=== PATIENT | female | born 1970 | race Caucasian/White ===

== ENCOUNTER → 2017-01-11 16:49 | Outpatient (CLI) | payer BC | END | disposition home or self-care (01) | LOC: D.MAMMO 16:15 | DX: Z12.31 Encounter for screening mammogram for malignant neoplasm of breast (principal) ==

== ENCOUNTER 2018-03-10 08:00 | Outpatient (CLI) | payer BC | END 2018-03-10 09:00 | disposition home or self-care (01) | LOC: D.MAMMO 08:00 | DX: Z12.31 Encounter for screening mammogram for malignant neoplasm of breast (principal) ==

== ENCOUNTER 2019-05-02 11:30 | Outpatient (CLI) | payer BC | END 2019-05-02 12:00 | disposition home or self-care (01) | LOC: D.MAMMO 11:30 | PROVIDERS: ATTEND Family Medicine | DX: Z12.31 Encounter for screening mammogram for malignant neoplasm of breast (principal) ==

== ENCOUNTER 2019-05-23 08:00 | Outpatient (CLI) | payer BC | END 2019-05-23 08:01 | disposition home or self-care (01) | LOC: D.MAMMO 08:00 | PROVIDERS: ATTEND Family Medicine | DX: R92.8 Other abnormal and inconclusive findings on diagnostic imaging of breast (principal) ==

== ENCOUNTER 2020-04-30 08:32 | Outpatient (CLI) | payer BC | END 2020-04-30 23:59 | disposition home or self-care (01) | LOC: D.MAMMO 08:32 | PROVIDERS: ATTEND Clinical Nurse Specialist Family Health | DX: N63.21 Unspecified lump in the left breast, upper outer quadrant (principal) ==

== ENCOUNTER 2020-12-25 10:06 | Emergency (ER) | payer BC ==
[~2020-12-25] VITALS: Ht 162.6 cm; Wt 102.3 kg
[2020-12-25 10:12] VITALS: Ht 162.6 cm; Wt 102.3 kg
[2020-12-25] MEDS ORDERED: DILTIAZEM 24HR180 M4 PO (10:13)
[2020-12-25] MEDS ORDERED: OMEPRAZOLE40 MG PO (10:13)
[2020-12-25] MEDS ORDERED: BENICAR5 MG PO (10:13)
[2020-12-25] MEDS ORDERED: WELLBUTRIN XL150 M1 PO (10:13)
[2020-12-25] MEDS ORDERED: PRAVASTATIN SOD10 MG PO (10:14)
[2020-12-25] MEDS ORDERED: AMBIEN10 MG PO (10:14)
[2020-12-25] MEDS ORDERED: ATIVAN2 MG PO (10:14)
[2020-12-25 10:59] LABS: CALC OSMOLALITY 282 mosm/kg (275-300); CALCIUM 9.3 mg/dL (8.5-10.1); CARBON DIOXIDE 29.8 mmol/L (21.0-32.0); CHLORIDE - SERUM 103 mmol/L (98-107); CREATININE - SERUM 0.8 mg/dL (0.6-1.3); POTASSIUM - SERUM 4.3 mmol/L (3.5-5.1); SODIUM 139 mmol/L (136-145); UREA NITROGEN 11 mg/dL (7-18); eGFR NON AFRICAN AMERICAN 81 mL/min (90-120)
[2020-12-25 11:00] LABS: BASOPHILS 0.2 % (0-2); EOSINOPHILS 0.8 % (0-7); GLUCOSE 206 mg/dL (74-106); HEMATOCRIT 43.7 % (36.0-48.0); IMMATURE GRANULOCYTES 0.5 % (0-5); LYMPHOCYTE ABS# 1.38 10x3/uL (1.18-3.74); LYMPHOCYTES 11.2 % (15-50); MCH 28.4 pg (26.0-34.0); MCV 88.6 fL (80.0-100.0); MEAN PLATELET VOLUME 10.5 fL (7.4-10.4); MONOCYTES 3.4 % (2-11); NEUTROPHIL ABS# 10.33 10x3/uL (1.56-6.13); NEUTROPHILS 83.9 % (40-80); PLATELET COUNT 383 10x3/uL (130-400); RBC 4.93 10x6/uL (4.00-5.40); RDW 14.4 % (11.5-14.5); WBC 12.3 10x3/uL (4.8-10.8)
[2020-12-25 11:08] LABS: ALBUMIN 3.7 g/dL (3.4-5.0); ALKALINE PHOSPHATASE 113 U/L (30-120); ALT (SGPT) 25 U/L (10-68); AMYLASE - SERUM 22 U/L (25-115); BILIRUBIN - TOTAL 0.27 mg/dL (0.2-1.3); PROTEIN - SERUM 7.5 g/dL (6.4-8.2); TROPONIN-I < 0.017 ng/mL (0.000-0.060)
[2020-12-25 11:09] LABS: LIPASE 39 U/L (73-393)
[2020-12-25 11:34] LABS: BILIRUBIN NEGATIVE (NEGATIVE); KETONE NEGATIVE (NEGATIVE); NITRITE NEGATIVE (NEGATIVE); UROBILINOGEN NORMAL mg/dL (< 2)
[2020-12-25] MEDS ORDERED: ZOFRAN ODT4 MG/UDTAB PO (12:25)
[2020-12-25] MEDS ORDERED: LEVSIN/ANASP0.125 MG PO (12:25)
[2020-12-25] MEDS ORDERED: FLORASTOR250 MG PO (12:25)
[2020-12-25 13:29] VITALS: BP 134/83
== END 2020-12-25 13:30 | disposition home or self-care (01) ==
LOC: D.ER 10:06
PROVIDERS: Family Medicine
DX: E27.9 Disorder of adrenal gland, unspecified (principal); R10.31 Right lower quadrant pain; R11.2 Nausea with vomiting, unspecified; Z53.20 Procedure and treatment not carried out because of patient's decision for unspecified reasons; I10 Essential (primary) hypertension; Z72.0 Tobacco use

== ENCOUNTER → 2020-12-26 10:33 | Outpatient (CLI) | payer BC ==
[2020-12-25 10:12] VITALS: BMI 38.7
[~2020-12-26 10:33] MED LIST: AMBIEN10 MG PO; ATIVAN2 MG PO; BENICAR5 MG PO; DILTIAZEM 24HR180 M4 PO; FLORASTOR250 MG PO; LEVSIN/ANASP0.125 MG PO; OMEPRAZOLE40 MG PO; PRAVASTATIN SOD10 MG PO; WELLBUTRIN XL150 M1 PO; ZOFRAN ODT4 MG/UDTAB PO
[2020-12-29 20:08] VITALS: BMI 37.8
== END | disposition home or self-care (01) ==
LOC: D.US 10:33
PROVIDERS: ATTEND Clinical Nurse Specialist Family Health
DX: R92.8 Other abnormal and inconclusive findings on diagnostic imaging of breast (principal)

== ENCOUNTER 2020-12-28 18:58 | Inpatient (IN) | payer BC ==
[~2020-12-28] VITALS: Ht 162.6 cm; Wt 100.0 kg
[2020-12-28 19:46] LABS: BASOPHILS 0.2 % (0-2); EOSINOPHILS 0.4 % (0-7); HEMATOCRIT 38.7 % (36.0-48.0); HEMOGLOBIN 12.4 g/dL (12-16); IMMATURE GRANULOCYTES 0.6 % (0-5); LYMPHOCYTE ABS# 1.19 10x3/uL (1.18-3.74); LYMPHOCYTES 7.5 % (15-50); MCH 28.3 pg (26.0-34.0); MCV 88.4 fL (80.0-100.0); MEAN PLATELET VOLUME 10.2 fL (7.4-10.4); MONOCYTES 6.3 % (2-11); NEUTROPHIL ABS# 13.43 10x3/uL (1.56-6.13); PLATELET COUNT 384 10x3/uL (130-400); RBC 4.38 10x6/uL (4.00-5.40); RDW 14.4 % (11.5-14.5); WBC 15.8 10x3/uL (4.8-10.8)
[2020-12-28 19:56] LABS: CALC OSMOLALITY 282 mosm/kg (275-300); CARBON DIOXIDE 27.2 mmol/L (21.0-32.0); CHLORIDE - SERUM 102 mmol/L (98-107); CREATININE - SERUM 1.2 mg/dL (0.6-1.3); GLUCOSE 195 mg/dL (74-106); POTASSIUM - SERUM 3.5 mmol/L (3.5-5.1); SODIUM 139 mmol/L (136-145); UREA NITROGEN 12 mg/dL (7-18); eGFR NON AFRICAN AMERICAN 51 mL/min (90-120)
[2020-12-28 20:09] LABS: BILIRUBIN NEGATIVE (NEGATIVE); KETONE NEGATIVE (NEGATIVE); NITRITE NEGATIVE (NEGATIVE); UROBILINOGEN NORMAL mg/dL (< 2)
[2020-12-28 20:11] LABS: ALBUMIN 3.1 g/dL (3.4-5.0); ALKALINE PHOSPHATASE 112 U/L (30-120); ALT (SGPT) 19 U/L (10-68); BILIRUBIN - TOTAL 0.28 mg/dL (0.2-1.3); C-REACTIVE PROTEIN 19.3 mg/dL (0.0-0.9); CREATINE KINASE 59 UL (21-215); PRO BNP 18 pg/mL (0-125); PROTEIN - SERUM 7.3 g/dL (6.4-8.2); THYROID STIMULATING HORMONE 1.38 uIU/mL (0.36-3.74); TROPONIN-I < 0.017 ng/mL (0.000-0.060)
[2020-12-28 20:12] LABS: LIPASE 36 U/L (73-393)
[2020-12-28 20:17] LABS: UDS - AMPHET NEGATIVE QUAL (NEGATIVE); UDS - BARB NEGATIVE QUAL (NEGATIVE); UDS - BENZO NEGATIVE QUAL (NEGATIVE); UDS - COCAINE NEGATIVE QUAL (NEGATIVE); UDS - OPIATE NEGATIVE QUAL (NEGATIVE); UDS - PCP NEGATIVE QUAL (NEGATIVE); UDS - THC NEGATIVE QUAL (NEGATIVE)
[2020-12-28 21:00] VITALS: BP 105/49
[2020-12-28 21:54] VITALS: BP 122/63
[2020-12-28 23:30] VITALS: BP 130/65
[2020-12-29 01:19] VITALS: BMI 37.8
[2020-12-29 04:00] VITALS: BP 112/63
[2020-12-29 07:26] LABS: BASOPHILS 0.1 % (0-2); EOSINOPHILS 1.1 % (0-7); HEMATOCRIT 34.3 % (36.0-48.0); HEMOGLOBIN 10.6 g/dL (12-16); IMMATURE GRANULOCYTES 0.4 % (0-5); LYMPHOCYTE ABS# 1.34 10x3/uL (1.18-3.74); LYMPHOCYTES 10.3 % (15-50); MCH 27.5 pg (26.0-34.0); MCHC 30.9 g/dL (31.0-37.0); MCV 88.9 fL (80.0-100.0); MEAN PLATELET VOLUME 10.6 fL (7.4-10.4); MONOCYTES 8.3 % (2-11); NEUTROPHIL ABS# 10.42 10x3/uL (1.56-6.13); NEUTROPHILS 79.8 % (40-80); PLATELET COUNT 367 10x3/uL (130-400); RBC 3.86 10x6/uL (4.00-5.40); RDW 14.5 % (11.5-14.5); WBC 13.1 10x3/uL (4.8-10.8)
[2020-12-29 07:35] LABS: INR 1.1 (0.85-1.17); PROTIME 13.2 SECONDS (11.6-15.0)
--- NOTE | 2020-12-29 07:51 | NUR ---
RESTING IN BED, NO DISTRESS NOTED, NPO, CONT TO MONITOR PAIN
[2020-12-29 08:04] LABS: APTT 30.3 SECONDS (22.8-39.4)
[2020-12-29 08:09] LABS: ANION GAP 13.3 mmol/L (8-16); CALCIUM 8.5 mg/dL (8.5-10.1); CARBON DIOXIDE 26.3 mmol/L (21.0-32.0); CREATININE - SERUM 0.9 mg/dL (0.6-1.3); MAGNESIUM - SERUM 2.3 mg/dL (1.8-2.4); PHOSPHOROUS 4.2 mg/dL (2.5-4.9); POTASSIUM - SERUM 3.6 mmol/L (3.5-5.1)
[2020-12-29 09:31] VITALS: BP 145/71
[2020-12-29 13:31] VITALS: BP 101/63
[2020-12-29 17:23] VITALS: BP 120/57
--- NOTE | 2020-12-29 19:00 | NUR ---
BEDSIDE REPORT RECEIVED AND CARE OF PT ASSUMED. PT SITTING UP IN CHAIR AT THIS TIME. IV TO LEFT AC PATENT WITH NS INFUSING AT 125 ML/HR. WILL MONITOR FOR NEEDS.
[2020-12-29 20:00] VITALS: BP 122/67
[2020-12-29 20:08] VITALS: Ht 162.6 cm; Wt 100.0 kg
--- NOTE | 2020-12-29 20:23 | NUR ---
GAVE ATIVAN PO PER PRN ORDER, PER REQUEST FOR ANXIETY. WILL CONTINUE TO MONITOR FOR NEEDS.
[2020-12-29 20:55] LABS: INR 1.09 (0.85-1.17); PROTIME 13.1 SECONDS (11.6-15.0)
--- NOTE | 2020-12-29 21:33 | NUR ---
HS MEDICATIONS GIVEN.
[2020-12-30] VITALS (12 sets, daily range): BP systolic 105–124; BP diastolic 52–83
[2020-12-30 07:04] LABS: BASOPHILS 0.1 % (0-2); EOSINOPHILS 1.1 % (0-7); HEMATOCRIT 35.4 % (36.0-48.0); HEMOGLOBIN 11.3 g/dL (12-16); IMMATURE GRANULOCYTES 0.5 % (0-5); LYMPHOCYTE ABS# 1.26 10x3/uL (1.18-3.74); LYMPHOCYTES 8.9 % (15-50); MCH 28.4 pg (26.0-34.0); MCHC 31.9 g/dL (31.0-37.0); MCV 88.9 fL (80.0-100.0); MEAN PLATELET VOLUME 10.3 fL (7.4-10.4); MONOCYTES 6.1 % (2-11); NEUTROPHILS 83.3 % (40-80); RBC 3.98 10x6/uL (4.00-5.40); RDW 14.3 % (11.5-14.5); WBC 14.2 10x3/uL (4.8-10.8)
[2020-12-30 07:08] LABS: PLATELET COUNT 460 10x3/uL (130-400)
[2020-12-30 07:22] LABS: ANION GAP 13.1 mmol/L (8-16); CALCIUM 8.7 mg/dL (8.5-10.1); CARBON DIOXIDE 24.6 mmol/L (21.0-32.0); CREATININE - SERUM 0.9 mg/dL (0.6-1.3); MAGNESIUM - SERUM 2.1 mg/dL (1.8-2.4); PHOSPHOROUS 3.3 mg/dL (2.5-4.9); POTASSIUM - SERUM 3.7 mmol/L (3.5-5.1)
--- NOTE | 2020-12-31 03:53 | NUR ---
PATIENT HAD PAIN MANAGED WITH THE PRESCRIBED PAIN MEDICATION, SHE IS CURRENTLY RESTING IN BED WITH HER EYES CLOSED.
[2020-12-31 04:30] VITALS: BP 112/61
[2020-12-31 06:37] LABS: BASOPHILS 0.1 % (0-2); EOSINOPHILS 1.6 % (0-7); HEMATOCRIT 30.7 % (36.0-48.0); HEMOGLOBIN 9.3 g/dL (12-16); IMMATURE GRANULOCYTES 0.5 % (0-5); LYMPHOCYTE ABS# 1.45 10x3/uL (1.18-3.74); LYMPHOCYTES 16.7 % (15-50); MCH 27.2 pg (26.0-34.0); MCHC 30.3 g/dL (31.0-37.0); MCV 89.8 fL (80.0-100.0); MONOCYTES 5.1 % (2-11); NEUTROPHIL ABS# 6.61 10x3/uL (1.56-6.13); RBC 3.42 10x6/uL (4.00-5.40); RDW 14.3 % (11.5-14.5)
[2020-12-31 06:50] LABS: PLATELET COUNT 350 10x3/uL (130-400); WBC 8.7 10x3/uL (4.8-10.8)
[2020-12-31 07:41] LABS: ANION GAP 11.3 mmol/L (8-16); CALCIUM 8.3 mg/dL (8.5-10.1); CARBON DIOXIDE 26.5 mmol/L (21.0-32.0); CREATININE - SERUM 0.9 mg/dL (0.6-1.3); MAGNESIUM - SERUM 2.1 mg/dL (1.8-2.4); PHOSPHOROUS 3.4 mg/dL (2.5-4.9); POTASSIUM - SERUM 3.8 mmol/L (3.5-5.1)
--- NOTE | 2020-12-31 07:42 | NUR ---
RECIEVED BEDSIDE REPORT. BED LOW POSITION, CALL LIGHT IN REACH. AROUSES TO VOICE. DENIES NEEDS AT THIS TIME. WILL CONTINUE TO MONITOR.
[2020-12-31 08:38] VITALS: BP 116/63
[2020-12-31] MEDS ORDERED: FLAGYL500 MG PO (09:40)
[2020-12-31] MEDS ORDERED: LEVOFLOXACIN500 MG PO (09:40)
[2020-12-31] MEDS ORDERED: PROBIOTIC1 EAC1 PO (09:41)
[2020-12-31] MEDS ORDERED: HYDROCODON-ACE1 EAC7 PO (09:42)
--- NOTE | 2020-12-31 12:50 | NUR ---
DISCHARGE TEACHING COMPLETE. NO FURTHER QUESTIONS. IV CATH REMOVED. CATH TIP INTACT. BELONGINGS GATHERED. DENIES FURTHER NEEDS. LEFT UNIT VIA WHEELCHAIR AT THIS TIME.
--- NOTE | 2021-01-01 10:22 | MORECARE ---
CASE MANAGEMENT DISCHARGE SUMMARY PATIENT: NABILA VARELA UNIT: [id number] ADM DATE: 12/28/20 AGE: 50 : 72 SEX: F ROOM/BED: D.2218 AUTHOR: NAYELI,DOC PHYSICIAN: REFERRING PHYSICIAN: MEGHAN VILLALOBOS MD DATE OF SERVICE: 01/01/21 Case Management Discharge Planning Summary COMMENTS ENTERED DATE: 12/31/20 14:39 CT COMMENT TYPE: Discharge Planning REVIEWER: Nelly Donis LATE ENTRY 12/31/20 @ 1130 CM met with patient to complete initial dc planning assessment. CM educated patient on the CM role and verbal consent given by patient to complete assessment. Patient lives at home independently where she denies any problems. At discharge patient plans to return home and feels this is a safe discharge. 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 CM discussed availability of home health, rehab services, and medical equipment. Patient denied known discharge needs at this time. CM will continue to follow and will assist as needed with dc plans/needs. DCP REVIEW SUMMARY ANTICIPATED D/C DATE: EXPECTED LOS : 0 CASE STATUS: DCP Not started INITIAL REVIEW: 12/28/2020 INITIAL REVIEWER: Nelly Donis FINAL DISCHARGE DISPOSITION: : FINAL REVIEWER: Nelly Donis FINAL REVIEW DATE: 01/01/2021 DCP [employer] Questions [employer] Answers QUESTION: ANSWER : PATIENT: NABILA VARELA ENCOUNTER: [id number] MEDICAL RECORD#: [id number] ADMISSION DATE: 12/28/2020 DISCHARGE DATE: 12/31/2020 ATTENDING MD: MEGHAN DUENAS : AGE: 50 MARITAL STATUS: M DC PLAN ID: [id number] FACILITY: [facility] PRINTED ON: 01/01/21 8:42 CT All edits/amendments must be made on the electronic document DICTATION DATE: 01/01/21841 SECOND OFFICER: HUA 01/01/21841 RPT#: [id number] DC DATE:12/31/20 STATUS: DIS IN [facility] [address] [place] [address] END OF REPORT
== END 2020-12-31 13:37 | disposition home or self-care (01) | DRG 759 ==
LOC: D.ER 18:58 → D.MS 22:37
PROVIDERS: Family Medicine; Specialist; ADMIT Surgery; ATTEND Surgery
PROC: 0W9J3ZZ Drainage of Pelvic Cavity, Percutaneous Approach (ICD-10-PCS; principal; 2020-12-30 11:00)
DX: N73.9 Female pelvic inflammatory disease, unspecified (principal); K21.9 Gastro-esophageal reflux disease without esophagitis; F41.8 Other specified anxiety disorders; G47.33 Obstructive sleep apnea (adult) (pediatric); E78.5 Hyperlipidemia, unspecified; I10 Essential (primary) hypertension; R10.9 Unspecified abdominal pain; G47.00 Insomnia, unspecified; D72.829 Elevated white blood cell count, unspecified